=== PATIENT | male | born 1940 | race Caucasian/White ===

== ENCOUNTER 2017-11-08 18:27 | Emergency (ER) | payer OTHER, MEDICARE ==
[~2017-11-08] VITALS: Ht 175.3 cm; Wt 104.5 kg
[~2017-11-08 18:27] MED LIST: ASPIR-LOW81 MG PO; BP med; CIPRO 500MG TA500 MG PO; EPA FISH OIL1 SGL PO; HCTZ 25MG TAB25 MG PO; PRILOSEC 20MG20 MG PO; Triamterene PO; VERAPAMIL240 MG/TAB PO; VICODIN 5/5001 UDTAB PO; ZESTRIL 20MG TA20 MG PO; [UNRECOGNIZED DRUG - OTHER]
[2017-11-08 18:36] VITALS: TEMP 98.8
[2017-11-08 19:02] LABS: COLLECTION METHOD CLEAN CATCH
[2017-11-08 19:06] LABS: BASO # 0.1 (0.0-0.2); BASO % 0.6 % (0.0-2.0); EOS # 0.5 (0.0-0.7); GRAN # 8.9 (1.4-6.5); GRAN % 70.7 % (42.2-75.2); HEMATOCRIT 40.3 % (42.0-52.0); HEMOGLOBIN 13.3 g/dl (13.5-18.0); LYMPH # 1.9 (1.2-3.4); LYMPH % 14.9 % (20.0-51.0); MEAN CELL VOLUME 91 fl (80.0-100.0); MEAN CORPUSCULAR HEMOGLOBIN 30 pg (27.0-31.0); MEAN CORPUSCULAR HGB CONC 33 g/dl (33.0-37.0); MEAN PLATELET VOLUME 10.3 fl (7.4-10.4); MONO # 1.1 (0.1-0.6); MONO % 8.7 % (1.7-9.3); PLATELET COUNT 202 K/mm3 (130-400); RED BLOOD COUNT 4.43 M/mm3 (4.20-5.60); REDCELL DISTRIBUTION WIDTH-CV 14.3 % (11.5-14.5)
[2017-11-08 19:10] LABS: MUCOUS Present /lpf; PH 6 (5-8); SQUAMOUS EPITHELIAL 0-2 /hpf; URINE APPEARANCE Clear; URINE BACTERIA None Seen /hpf; URINE BILIRUBIN Negative (NEGATIVE); URINE BLOOD Negative (NEGATIVE); URINE COLOR Yellow; URINE GLUCOSE Negative (NEGATIVE); URINE KETONE Negative (NEGATIVE); URINE LEUKOCYTE ESTERASE Negative (NEGATIVE); URINE NITRATE Negative (NEGATIVE); URINE PROTEIN(semi-quant) 1+ (NEGATIVE); URINE RBC 0-2 /hpf; URINE UROBILINOGEN Negative (NEGATIVE)
[2017-11-08 19:17] LABS: ALBUMIN 4.1 gm/dL (3.5-5.0); BILIRUBIN,TOTAL 0.3 mg/dL (0.0-1.0); CALCIUM 9.3 mg/dL (8.4-10.2); CREATININE, serum 0.81 mg/dL (0.66-1.25); POTASSIUM 3.9 mmol/L (3.4-5.0); TOTAL PROTEIN 7.3 gm/dL (6.4-8.2)
[2017-11-08] MEDS ORDERED: PROBIOTIC-SUNMARK PO (20:14)
[2017-11-08 20:42] VITALS: BP 138/75; PULSE 76
[2017-11-09] MEDS ORDERED: MAXZIDE 50 MG-71 TAB PO (12:08)
== END 2017-11-08 20:44 | disposition home or self-care (01) ==
LOC: COL.ER 18:27
PROVIDERS: Family Medicine
DX: S63.271A Dislocation of unspecified interphalangeal joint of left index finger, initial encounter (principal); S82.001A Unspecified fracture of right patella, initial encounter for closed fracture; S16.1XXA Strain of muscle, fascia and tendon at neck level, initial encounter; R33.9 Retention of urine, unspecified; I10 Essential (primary) hypertension; K21.9 Gastro-esophageal reflux disease without esophagitis; V49.69XA Unspecified car occupant injured in collision with other motor vehicles in traffic accident, initial encounter
CPT/HCPCS: J2405; J3010; L1846

== ENCOUNTER → 2018-06-22 | Outpatient (CLI) | payer MEDICARE, OTHER ==
[~2018-06-22] MED LIST changes: +MAXZIDE 50 MG-71 TAB PO; +PROBIOTIC-SUNMARK PO
== END ==
LOC: MC.RAD 09:52
DX: N64.59 Other signs and symptoms in breast (principal); N64.4 Mastodynia; N62 Hypertrophy of breast

== ENCOUNTER → 2018-08-09 | Outpatient (CLI) | payer MEDICARE, OTHER | LOC: COL.RAD 14:03 | DX: N40.0 Benign prostatic hyperplasia without lower urinary tract symptoms (principal); Z87.19 Personal history of other diseases of the digestive system; Z90.49 Acquired absence of other specified parts of digestive tract | CPT/HCPCS: Q9967 ==

== ENCOUNTER → 2018-09-12 | Outpatient (CLI) | payer MEDICARE, OTHER | LOC: COL.RAD 07:17 | DX: J92.0 Pleural plaque with presence of asbestos (principal); I27.20 Pulmonary hypertension, unspecified; Z90.49 Acquired absence of other specified parts of digestive tract ==

== ENCOUNTER → 2020-02-29 | Outpatient (CLI) | payer MEDICARE, OTHER ==
[~2020-02-29] VITALS: Ht 182.9 cm; Wt 106.0 kg
[2020-02-29 13:42] VITALS: BP 163/84; PULSE 68
[2020-02-29 15:00] VITALS: BP 149/69; PULSE 63
--- NOTE | 2020-02-29 15:57 | NUR ---
pt states that he feels better but still no great
--- NOTE | 2020-02-29 16:25 | NUR ---
pt is able to stand and the numbness and tingling are no better or worse than when he came in. he stands well and is able to transfer to chair steadily. taken to [facility] and left with his .
== END ==
LOC: COL.RAD 12:57
DX: M54.16 Radiculopathy, lumbar region (principal)
CPT/HCPCS: J3301

== ENCOUNTER → 2020-03-31 | Outpatient (CLI) | payer MEDICARE, OTHER ==
[~2020-03-31] VITALS: Ht 180.3 cm; Wt 107.3 kg
[~2020-03-31] MED LIST changes: +FISH OIL 1000MG1 CAP PO; +METAMUCIL MUL0.52 GM PO; +VITAMIN D31000 I1 PO
[2020-03-31 08:58] VITALS: BP 191/92; PULSE 77
[2020-03-31 09:48] VITALS: BP 168/82; PULSE 73
== END ==
LOC: COL.RAD 08:34
DX: M54.16 Radiculopathy, lumbar region (principal)
CPT/HCPCS: J3301

== ENCOUNTER → 2020-06-24 | Outpatient (CLI) | payer MEDICARE, OTHER ==
[~2020-06-24] VITALS: Ht 180.3 cm; Wt 106.0 kg
[~2020-06-24] MED LIST changes: +TYLENOL 8 HR PO; +ZESTRIL40 MG PO
[2020-06-24 07:01] VITALS: BP 159/77; PULSE 87
--- NOTE | 2020-06-24 08:08 | NUR ---
BCK WITH CT
[2020-06-24 08:40] VITALS: BP 135/72; PULSE 67
== END ==
LOC: COL.RAD 06:52
DX: M48.062 Spinal stenosis, lumbar region with neurogenic claudication (principal); M47.26 Other spondylosis with radiculopathy, lumbar region
CPT/HCPCS: J3301

== ENCOUNTER 2020-09-23 08:16 | Emergency (ER) | payer MEDICARE, OTHER ==
[~2020-09-23] VITALS: Ht 182.9 cm; Wt 109.1 kg
[~2020-09-23 08:16] MED LIST changes: -TYLENOL 8 HR PO; -ZESTRIL40 MG PO
[2020-09-23 10:29] VITALS: BP 134/66; PULSE 68
== END 2020-09-23 10:33 | disposition home or self-care (01) ==
LOC: COL.ER 08:16
DX: R33.9 Retention of urine, unspecified (principal)

== ENCOUNTER 2020-09-23 15:49 | Observation (INO) | payer MEDICARE, OTHER ==
[~2020-09-23] VITALS: Ht 182.9 cm; Wt 106.8 kg
[2020-09-23 18:54] LABS: HEMOGLOBIN 11.2 g/dl (13.5-18.0); MEAN CELL VOLUME 89 fl (80.0-100.0); MEAN CORPUSCULAR HEMOGLOBIN 29 pg (27.0-31.0); MEAN CORPUSCULAR HGB CONC 32 g/dl (33.0-37.0); MEAN PLATELET VOLUME 10.2 fl (7.4-10.4); PLATELET COUNT 236 K/mm3 (130-400); RED BLOOD COUNT 3.91 M/mm3 (4.20-5.60); REDCELL DISTRIBUTION WIDTH-CV 14.6 % (11.5-14.5)
[2020-09-23 18:55] LABS: HEMATOCRIT 34.8 % (42.0-52.0)
[2020-09-23 19:01] LABS: ALBUMIN 3.5 gm/dL (3.5-5.0); BILIRUBIN,TOTAL 0.5 mg/dL (0.0-1.0); CALCIUM 9.8 mg/dL (8.4-10.2); CREATININE, serum 1.53 (0.66-1.25); POTASSIUM 4.5 mmol/L (3.4-5.0); TOTAL PROTEIN 6.8 gm/dL (6.4-8.2)
[2020-09-23 19:30] LABS: BAND 9 % (0-10); LYMPHOCYTE 10 % (20.0-51.0); NEUTROPHILS 78 % (42.0-75.2); PLATELET ESTIMATE NORMAL (NORMAL)
[2020-09-23 22:11] VITALS: BP 150/59; PULSE 90; TEMP 99
[2020-09-24] VITALS (10 sets, daily range): BP systolic 125–160; BP diastolic 53–68; PULSE 76–92; TEMP 97.9–99
--- NOTE | 2020-09-24 04:28 | NUR ---
PATIENT ARRIVED TO UNITS FROM ER. ALERT AND ORIENTED X4. AMBULATED TO BEDROOM WITH 1 ASSIST. PATIENT PRESENT WITH HEMATURIA. HAD TRAMATIC FOELY INSERTION. [address] MEANS CBI WAS INSERTED. ON THE FLOOR CBI WAS CLOGE IRRIGATION DONE WITH NO EFFECT. PATIENT CRYING WITH PAIN AND DISCOMFORT. DR MONTANO CONTACT. NEW ORDER FOR PERCOCET 1 TAB, 5 MG OF VALIUM, LEVSIN 0.125MG AND IVF STARTED WITH NO EFFECT. DR MONTANO MADE AWARE, GIVE ORDER TO DISCONTINUE CBI AND PULL OUT MEANS. WILL CONTINUE TO MONITOR.
--- NOTE | 2020-09-24 07:17 | NUR ---
PATIENT DUE TO VOID AROUND 6AM. PATIENT MADE SEREVAL ATTENTED WITHOUT EFFECT. BLADDER SCAN SHOW 927ML. DR MONTANO MADE AWARE, ORDER TO STRAITH CATH WITH 14 FR CATHER. MADE SEVERAL ATTEMPT WITHOUT SUCESS. DR MONTANO IN TO SEE PATIENT. TRIED TO PLACE A COUDE WITH NO RESULT. PLAN TO TAKE PATIENT DOWN TO OR. PATIENT BEEN NPO.
--- NOTE | 2020-09-24 09:30 | NUR ---
Patient alert and oriented, answers questions appropriately. See assessment. Abdomen distended, bowel sounds active x4 quads. +Flatus. Continues unable to void, bladder scan shows greater than 999ml in bladder, Dr Garrett aware, awaiting surgery time. Patient to bathroom with unsuccessful attempts to void. C/o pain from inability to void. No other c/o at this time.
--- NOTE | 2020-09-24 10:10 | NUR ---
To surgery with surgical staff at this time.
--- NOTE | 2020-09-24 11:00 | NUR ---
The patient is out of the room for a procedure. Formula Clerk attempted to contact the patient's Abigail to complete intake, left message on two different numbers.
--- NOTE | 2020-09-24 12:02 | NUR ---
Patient returns from surgery at 1155.
--- NOTE | 2020-09-24 14:31 | NUR ---
Sand Hauler met with the patient, the patient's , Abigail and [id number] Mony to complete intake. The patient lives in [place] with Abigail. The patient has a walker and CPAP. He receives CPAP supplies from [facility] in [place]. The patient's PCP is Dr. Fleming and patient receives medications from [facility]. The patient does not have advanced directives in the EMR but states they are complete. The patient plans to return home with Abigail at discharge. *Discharge disposition: Home with spouse, Abigail*
--- NOTE | 2020-09-24 17:28 | NUR ---
Discharge instructions reviewed with patient and spouse, basilio care reviewed. Discharged via wheelchair to auto/home with spouse at 1725.
== END 2020-09-24 17:20 | disposition home or self-care (01) ==
LOC: COL.ER 15:49 → SURG 17:58
PROVIDERS: Nurse Practitioner; ADMIT Urology
DX: R33.8 Other retention of urine (principal); R31.0 Gross hematuria; N40.1 Benign prostatic hyperplasia with lower urinary tract symptoms; D72.829 Elevated white blood cell count, unspecified; I10 Essential (primary) hypertension; K21.9 Gastro-esophageal reflux disease without esophagitis; N28.9 Disorder of kidney and ureter, unspecified; Z87.891 Personal history of nicotine dependence; Z79.899 Other long term (current) drug therapy; Z85.21 Personal history of malignant neoplasm of larynx
CPT/HCPCS: C1769; G0378; J0690; J1170; J2405; J2704; J3010; J7030

== ENCOUNTER 2020-10-17 05:11 | Day surgery (SDC) | payer MEDICARE, OTHER ==
[2020-10-17] VITALS (10 sets, daily range): BP systolic 136–171; BP diastolic 46–84; PULSE 69–96; TEMP 97.3–98.7
[~2020-10-17] VITALS: Ht 182.9 cm; Wt 104.2 kg
[2020-10-17] MEDS ORDERED: ZESTRIL40 MG PO (06:10)
[2020-10-17] MEDS ORDERED: TYLENOL 8 HR PO (06:14)
--- NOTE | 2020-10-17 10:57 | NUR ---
Pt recently arrived back to the floor from [facility]. CBI running wide open, output when arriving to the floor was pink to watermelon in color. Output now is dark red with some clots. CBI continues to run wide open. Stayed with pt to ensure output was continueing to flow without problems. PT is tolerating clear liquids. Continues to have no feeling in his legs. present in the room
--- NOTE | 2020-10-17 13:57 | NUR ---
CBI continues to run wide open with bloody output. Some clots in the tubing, unsure if they are new or not. Pt having some back pain, Tylenol given. Tolerating general diet
--- NOTE | 2020-10-17 15:00 | NUR ---
Was able to slow down CBI at this time to moderate rate. Output is currently free of clots and is pink in color. Pt continues to have complaints of pain to his back/neck. Heating pad applied. remains present in the room. No other needs verbalized, will continue to monitor
--- NOTE | 2020-10-17 22:22 | NUR ---
PT IN BED, REPORTS CHRONIC BACK PAIN, MEDICATED WITH TYLENOL 650MG PO AT THIS TIME, WELL HS MEDS. CBI AT MODERATE RATE, URINE PINK. HAS KPAD TO BACK FOR COMFORT. SL TO LEFT FOREARM, FLUSHES WELL.
--- NOTE | 2020-10-18 02:40 | NUR ---
PT COMPLAINS OF LEFT ABD PAIN, MEDICATED WITH TYLENOL 650MG PO AT THIS TIME. CBI AT MODERATE, URINE PINK. WILL MONITOR FOR CHANGES.
[2020-10-18 03:39] VITALS: BP 121/45; PULSE 87; TEMP 98.6
[2020-10-18 07:34] VITALS: BP 162/63; PULSE 88; TEMP 97.7
[2020-10-18 11:22] VITALS: BP 119/51; PULSE 59; TEMP 97.8
--- NOTE | 2020-10-18 12:31 | NUR ---
Stenotypist stopped and offered prayer and support with family in room.
--- NOTE | 2020-10-18 16:07 | NUR ---
Plans to return home in [facility] with Abigail as care support . Patient eports that his PCP is Dr. Clarke Fleming, Dr. Barnes, Dr. Haq in [place]. Patient shares that he has a walker but uses PRN. Obtain medications from [facility]. Patient denies having concerns about care. Patient shares that he has food transportation and has not other identified concerns at this time. Educated on supports. NF.
[2020-10-18 16:17] VITALS: BP 136/59; PULSE 78; TEMP 98.2
[2020-10-18 19:43] VITALS: BP 119/42; PULSE 75; TEMP 98.7
--- NOTE | 2020-10-18 21:50 | NUR ---
PT AMBULATES WITH ASSIST IN HALLWAY. MEANS WITH CBI INFUSING, URINE WITH GROSS HEMATURIA WITH ACTIVITY, CLEARS WITH REST. TAKES HS MEDS INCLUDING TYLENOL 650MG PO FOR CHRONIC BACK PAIN.
[2020-10-18 23:19] VITALS: BP 139/56; PULSE 83; TEMP 98.4
[2020-10-19 03:08] VITALS: BP 151/58; PULSE 74; TEMP 97.3
--- NOTE | 2020-10-19 04:00 | NUR ---
PT ASSISTED WITH AMBULATION IN HALLWAY. SL TO LEFT FOREARM FLUSHES WELL. WILL DC MIGUELANGEL IN AM.
--- NOTE | 2020-10-19 06:30 | NUR ---
DC'D MEANS CATHETER AFTER PRIMING WITH 200CC NS AND DEFLATING BALLOON. PT IMMEDIATELY VOIDED AFTER CATHETER REMOVED. INSTRUCTED ON 6 BOTTLE ROUTINE.
[2020-10-19 07:14] VITALS: BP 161/63; PULSE 80; TEMP 98
--- NOTE | 2020-10-19 08:58 | NUR ---
PT UP INDEPENDENTLY IN ROOM AND HALLS. AT [facility] ASSISTING PT WITH SHOWER. AFTER SIX BOTTLE ROUTINE PT ABLE TO DISCHARGE HOME.
--- NOTE | 2020-10-19 11:10 | NUR ---
DISCHARGE REVIEWED WITH PT AND . QUESTIONS SOLICITED AND ANSWERED. PT LEFT PER WHEEL CHAIR WITH STAFF. INT DISCONTINUED.
== END 2020-10-19 10:55 | disposition home or self-care (01) ==
LOC: SDCO 05:11 → SURG 09:45 → SDCO 10-19 10:55
DX: N40.1 Benign prostatic hyperplasia with lower urinary tract symptoms (principal); R33.8 Other retention of urine; R39.12 Poor urinary stream; K21.9 Gastro-esophageal reflux disease without esophagitis; I10 Essential (primary) hypertension; I83.90 Asymptomatic varicose veins of unspecified lower extremity; I34.2 Nonrheumatic mitral (valve) stenosis; E66.9 Obesity, unspecified; J44.9 Chronic obstructive pulmonary disease, unspecified; D64.9 Anemia, unspecified; G47.00 Insomnia, unspecified; Z85.21 Personal history of malignant neoplasm of larynx; Z79.899 Other long term (current) drug therapy; Z87.891 Personal history of nicotine dependence
CPT/HCPCS: OP; J0690; J2250; J2704; J3480; J7120

== ENCOUNTER 2021-04-09 12:45 | Outpatient (RCR) | payer MEDICARE, OTHER ==
[~2021-04-09 12:45] MED LIST changes: +TYLENOL 8 HR PO; +ZESTRIL40 MG PO
== END 2021-04-10 | disposition home or self-care (01) ==
LOC: WSPT
DX: Z98.1 Arthrodesis status (principal)

== ENCOUNTER 2021-10-04 17:44 | Emergency (ER) | payer MEDICARE, OTHER ==
[~2021-10-04] VITALS: Ht 180.3 cm; Wt 104.5 kg
[2021-10-04 17:52] VITALS: TEMP 98.5
[2021-10-04 18:13] LABS: HEMOGLOBIN 11.4 g/dl (13.5-18.0); MEAN CELL VOLUME 91 fl (80.0-100.0); MEAN CORPUSCULAR HEMOGLOBIN 30 pg (27-31); MEAN CORPUSCULAR HGB CONC 32 g/dl (33.0-37.0); MEAN PLATELET VOLUME 10.1 fl (7.4-10.4); PLATELET COUNT 326 K/mm3 (130-400); RED BLOOD COUNT 3.87 M/mm3 (4.20-5.60); REDCELL DISTRIBUTION WIDTH-CV 14.7 % (11.5-14.5)
[2021-10-04 18:14] LABS: HEMATOCRIT 35.2 % (42.0-52.0)
[2021-10-04 18:23] LABS: ALBUMIN 3.5 gm/dL (3.4-4.8); BILIRUBIN,TOTAL 0.4 mg/dL (0.2-1.2); C-REACTIVE PROTEIN 2.74 mg/dL (0.00-0.50); CALCIUM 10.1 mg/dL (8.4-10.2); CREATININE, serum 1.06 mg/dL (0.72-1.25); POTASSIUM 4.5 mmol/L (3.5-4.5); TOTAL PROTEIN 7.6 gm/dL (6.2-8.1)
[2021-10-04 19:13] LABS: EOSINOPHIL 1 % (0-4); LYMPHOCYTE 13 % (20.0-51.0); NEUTROPHILS 84 % (42.0-75.2); PLATELET ESTIMATE NORMAL (NORMAL)
[2021-10-04 19:28] LABS: COLLECTION METHOD CLEAN CATCH
[2021-10-04 19:35] LABS: MUCOUS Present (NOT PRESENT); PH 7 (5-8); SQUAMOUS EPITHELIAL None Seen /hpf (0-10); URINE APPEARANCE Clear (CLEAR/HAZY); URINE BACTERIA None Seen /hpf (NONE SEEN); URINE BILIRUBIN Negative (NEGATIVE); URINE BLOOD Negative (NEGATIVE); URINE COLOR Yellow (YELLOW); URINE GLUCOSE Negative (NEGATIVE); URINE KETONE Negative (NEGATIVE); URINE LEUKOCYTE ESTERASE Negative (NEGATIVE); URINE NITRATE Negative (NEGATIVE); URINE PROTEIN(semi-quant) Negative (NEGATIVE); URINE RBC 0-2 /hpf (0-2); URINE UROBILINOGEN Negative (NEGATIVE)
[2021-10-04] MEDS ORDERED: NORCO 325 MG-51 TAB PO (22:02)
[2021-10-04] MEDS ORDERED: CIPRO 500MG TA500 MG PO ×3 (22:02→22:14)
[2021-10-04] MEDS ORDERED: FLAGYL500 MG PO ×3 (22:02→22:14)
[2021-10-04] MEDS ORDERED: ZOFRAN ODT4 MG PO (22:02)
[2021-10-04 22:20] VITALS: BP 119/69; PULSE 86
== END 2021-10-04 22:24 | disposition home or self-care (01) ==
LOC: COL.ER 17:44
PROVIDERS: Nurse Practitioner
DX: K57.32 Diverticulitis of large intestine without perforation or abscess without bleeding (principal); Z90.49 Acquired absence of other specified parts of digestive tract; Z88.0 Allergy status to penicillin
CPT/HCPCS: J1170; J2405; J7030; Q9967

== ENCOUNTER 2021-10-06 20:38 | Inpatient (IN) | payer MEDICARE, OTHER ==
[~2021-10-06] VITALS: Ht 182.9 cm; Wt 106.9 kg
[~2021-10-06 20:38] MED LIST changes: +FLAGYL500 MG PO; +NORCO 325 MG-51 TAB PO; +ZOFRAN ODT4 MG PO
[2021-10-06 22:33] LABS: HEMOGLOBIN 10.3 g/dl (13.5-18.0); MEAN CELL VOLUME 91 fl (80.0-100.0); MEAN CORPUSCULAR HEMOGLOBIN 29 pg (27-31); MEAN CORPUSCULAR HGB CONC 32 g/dl (33.0-37.0); MEAN PLATELET VOLUME 9.9 fl (7.4-10.4); PLATELET COUNT 257 K/mm3 (130-400); RED BLOOD COUNT 3.55 M/mm3 (4.20-5.60); REDCELL DISTRIBUTION WIDTH-CV 14.6 % (11.5-14.5)
[2021-10-06 22:35] LABS: HEMATOCRIT 32.4 % (42.0-52.0)
[2021-10-06 22:51] LABS: BAND 1 % (0-10); LYMPHOCYTE 9 % (20.0-51.0); NEUTROPHILS 85 % (42.0-75.2); PLATELET ESTIMATE NORMAL (NORMAL)
[2021-10-06 22:52] LABS: HYPOCHROMIA 2+
[2021-10-06 22:54] LABS: BILIRUBIN,TOTAL 0.5 mg/dL (0.2-1.2); C-REACTIVE PROTEIN 13.49 mg/dL (0.00-0.50); CALCIUM 9.4 mg/dL (8.4-10.2); CREATININE, serum 0.9 mg/dL (0.72-1.25); TOTAL PROTEIN 6.9 gm/dL (6.2-8.1)
[2021-10-07 01:40] VITALS: BP 162/67; PULSE 99; TEMP 98.2
[2021-10-07 04:11] VITALS: BP 141/64; PULSE 88; TEMP 98
--- NOTE | 2021-10-07 04:32 | NUR ---
Pt to the floor at approximately 0120. Assessment and medication administration completed. Pt is A&Ox4 and ambulates independently with cane. Hospitalist in to see the pt. Orders received. PRN pain medication given per EMAR. All other needs met at this time, call light within reach.
[2021-10-07 05:54] LABS: BASO # 0.1 K/mm3 (0.0-0.2); BASO % 0.5 % (0.0-2.0); EOS # 0.4 K/mm3 (0.0-0.7); EOS % 2.6 % (0.0-4.0); GRAN # 12.9 K/mm3 (1.4-6.5); LYMPH # 1.1 K/mm3 (1.2-3.4); LYMPH % 6.6 % (20.0-51.0); MEAN CELL VOLUME 92 fl (80.0-100.0); MEAN CORPUSCULAR HGB CONC 32 g/dl (33.0-37.0); MONO # 1.5 K/mm3 (0.1-0.6); MONO % 9.1 % (1.7-9.3); PLATELET COUNT 244 K/mm3 (130-400); RED BLOOD COUNT 3.18 M/mm3 (4.20-5.60); REDCELL DISTRIBUTION WIDTH-CV 14.5 % (11.5-14.5)
[2021-10-07 05:57] LABS: HEMATOCRIT 29.1 % (42.0-52.0); HEMOGLOBIN 9.2 g/dl (13.5-18.0); MEAN CORPUSCULAR HEMOGLOBIN 29 pg (27-31)
[2021-10-07 06:10] LABS: CALCIUM 8.8 mg/dL (8.4-10.2); CREATININE, serum 0.77 mg/dL (0.72-1.25); POTASSIUM 3.8 mmol/L (3.5-4.5)
[2021-10-07 07:44] VITALS: BP 143/69; PULSE 88; TEMP 98.4
--- NOTE | 2021-10-07 10:36 | NUR ---
Warp Dyeing Tender met with patient to discuss discharge planning. Patient has family at bedside including his , Abigail (ph#[phone]). Patient lives in [place] and sees Dr. Fleming for primary care. Patient obtains medications from either [facility] or [facility] with no difficulties. Patient has a CPAP, cane, and walker at home and is typically independent with ADLS but has required more assistance from his lately as he recently had knee surgery. Patient reports his , Abigail is his DPOA-HC. Patient plans to return home at time of discharge. Discharge Plan: Home
--- NOTE | 2021-10-07 12:35 | NUR ---
PATIENT ALERT AND ORIENTED X3. VSS. PATIENT HERE FOR DIVERTICULITIS. PATIENT COMPLAINS OF PAIN 06/18. ASSESSMENT PERFORMED. IV TO RIGHT FOREARM WITH NS RUNNING AT 75ML/HOUR. AM MEDS ADMINISTERED. CALL LIGHT WITHIN REACH.
[2021-10-07 13:06] VITALS: BP 117/32; PULSE 72; TEMP 98.4
--- NOTE | 2021-10-07 13:45 | NUR ---
Initial visit; Patient and his thanked Water Filter Cleaner for looking in on him and offering Spiritual Care. Patient pleased with prayer and Water Filter Cleaner assured him there is the offer of Spiritual Care and Chaplains here daily.
[2021-10-07 16:08] VITALS: BP 124/53; PULSE 75; TEMP 97.9
[2021-10-07 20:30] VITALS: BP 145/64; PULSE 77; TEMP 97.9
--- NOTE | 2021-10-07 21:56 | NUR ---
Pt resting quietly in his bed during shift report. Pt is A&Ox4 and pleasant. Assessment and medication administration completed without difficulty. Pain medication given per EMAR. All other needs met at this time, call light within reach.
[2021-10-08] VITALS (7 sets, daily range): BP systolic 123–144; BP diastolic 47–64; PULSE 73–89; TEMP 98.1–98.8
--- NOTE | 2021-10-08 07:00 | NUR ---
PT RESTING IN BED TALKING ON THE PHONE. BREAKFAST DONE. PT HAS CALL LIGHT AND PHONE WITH IN REACH, PT DENIES NEEDS.
--- NOTE | 2021-10-08 20:31 | NUR ---
PT JUST RETURNED FROM BR. BACK TO BED. IVF'S DC'D ORDERED. PT DENIES ABD PAIN OR NAUSEA AT THIS TIME. NO NEEDS VERBALIED. CALL LIGHT IN REACH.
--- NOTE | 2021-10-08 21:25 | NUR ---
SEE MAR FOR PAIN MED GIADRIAN FOR S/P LT KNEE PAIN.
[2021-10-09 03:26] VITALS: BP 143/57; PULSE 79; TEMP 98.6
[2021-10-09 06:21] LABS: MEAN CELL VOLUME 92 fl (80.0-100.0); MEAN CORPUSCULAR HGB CONC 31 g/dl (33.0-37.0); MEAN PLATELET VOLUME 10.2 fl (7.4-10.4); PLATELET COUNT 300 K/mm3 (130-400); RED BLOOD COUNT 3.42 M/mm3 (4.20-5.60); REDCELL DISTRIBUTION WIDTH-CV 14.7 % (11.5-14.5)
[2021-10-09 06:43] LABS: HEMATOCRIT 31.5 % (42.0-52.0); HEMOGLOBIN 9.9 g/dl (13.5-18.0); MEAN CORPUSCULAR HEMOGLOBIN 29 pg (27-31)
[2021-10-09 07:04] LABS: BAND 4 % (0-10); BASOPHIL 1 % (0-2); EOSINOPHIL 4 % (0-4); METAMYELOCYTE 2 % (0-0); NEUTROPHILS 69 % (42.0-75.2)
[2021-10-09 07:05] LABS: HYPOCHROMIA 2+; PLATELET ESTIMATE NORMAL (NORMAL)
[2021-10-09 07:10] LABS: LYMPHOCYTE 12 % (20.0-51.0)
[2021-10-09 08:18] VITALS: BP 150/54; PULSE 95; TEMP 98.5
[2021-10-09] MEDS ORDERED: ASPIRIN 32325 MG/TAB PO (09:04)
--- NOTE | 2021-10-09 12:12 | NUR ---
PATIENT GIVEN ALL DISCHARGE INSTRUCTIONS/EDUCATION. IV REMOVED. PATIENT AND HAVE ALL DISHCARGE PACKETS AND BEELONGINGS. PATIENT LEFT IN THE CARE OF HIS IN STABLE CONDITION @ 1827.
== END 2021-10-09 11:34 | disposition home or self-care (01) | DRG 392 ==
LOC: COL.ER 20:38 → SURG 10-07 01:03
PROVIDERS: Internal Medicine; Nurse Practitioner; Student in an Organized Health Care Education/Training Program; ADMIT Internal Medicine
DX: K57.32 Diverticulitis of large intestine without perforation or abscess without bleeding (principal); I10 Essential (primary) hypertension; D64.9 Anemia, unspecified; Z96.652 Presence of left artificial knee joint; D72.829 Elevated white blood cell count, unspecified; Z88.0 Allergy status to penicillin; Z88.2 Allergy status to sulfonamides; Z88.8 Allergy status to other drugs, medicaments and biological substances; Z87.891 Personal history of nicotine dependence; Z23 Encounter for immunization; Z90.49 Acquired absence of other specified parts of digestive tract
CPT/HCPCS: 99223-AI; 99232-AI; J0744; J1170; J2405; J7030; Q9967

== ENCOUNTER 2021-10-14 17:04 | Emergency (ER) | payer MEDICARE, OTHER ==
[~2021-10-14] VITALS: Ht 182.9 cm; Wt 104.5 kg
[~2021-10-14 17:04] MED LIST changes: +ASPIRIN 32325 MG/TAB PO
[2021-10-14 19:09] VITALS: TEMP 98.1
[2021-10-14 19:13] LABS: HEMOGLOBIN 10.7 g/dl (13.5-18.0); MEAN CELL VOLUME 89 fl (80.0-100.0); MEAN CORPUSCULAR HEMOGLOBIN 29 pg (27-31); MEAN CORPUSCULAR HGB CONC 32 g/dl (33.0-37.0); MEAN PLATELET VOLUME 9.7 fl (7.4-10.4); PLATELET COUNT 375 K/mm3 (130-400)
[2021-10-14 19:28] LABS: BAND 6 % (0-10); LYMPHOCYTE 3 % (20.0-51.0); METAMYELOCYTE 1 % (0-0); NEUTROPHILS 80 % (42.0-75.2); PLATELET ESTIMATE NORMAL (NORMAL)
[2021-10-14 19:33] LABS: ALBUMIN 3.3 gm/dL (3.4-4.8); BILIRUBIN,TOTAL 0.4 mg/dL (0.2-1.2); C-REACTIVE PROTEIN 1.33 mg/dL (0.00-0.50); CALCIUM 9.7 mg/dL (8.4-10.2); CREATININE, serum 1.1 mg/dL (0.72-1.25); TOTAL PROTEIN 7.1 gm/dL (6.2-8.1)
[2021-10-14 23:13] LABS: COLLECTION METHOD CLEAN CATCH
[2021-10-14 23:19] LABS: MUCOUS Present (NOT PRESENT); SQUAMOUS EPITHELIAL 0-2 /hpf (0-10); URINE APPEARANCE Clear (CLEAR/HAZY); URINE BACTERIA None Seen /hpf (NONE SEEN); URINE COLOR Yellow (YELLOW)
[2021-10-14 23:20] LABS: PH 7 (5-8); URINE BILIRUBIN Negative (NEGATIVE); URINE BLOOD Negative (NEGATIVE); URINE GLUCOSE Negative (NEGATIVE); URINE KETONE Negative (NEGATIVE); URINE LEUKOCYTE ESTERASE Trace (NEGATIVE); URINE NITRATE Negative (NEGATIVE); URINE PROTEIN(semi-quant) 1+ (NEGATIVE); URINE UROBILINOGEN Negative (NEGATIVE)
[2021-10-15 00:29] VITALS: BP 119/62; PULSE 80
[2021-10-19] MEDS ORDERED: FLAGYL500 MG PO ×3 (01:56→02:16)
[2021-10-19] MEDS ORDERED: LEVAQUIN 750MG750 M1 PO ×3 (01:56→02:16)
== END 2021-10-15 00:29 | disposition home or self-care (01) ==
LOC: COL.ER 17:04
PROVIDERS: Nurse Practitioner
DX: K59.00 Constipation, unspecified (principal); D72.829 Elevated white blood cell count, unspecified; Z88.0 Allergy status to penicillin
CPT/HCPCS: J7030; Q9967

== ENCOUNTER 2021-12-03 14:47 | Inpatient (IN) | payer MEDICARE, OTHER ==
[~2021-12-03] VITALS: Ht 182.9 cm; Wt 97.6 kg
[~2021-12-03 14:47] MED LIST changes: +LEVAQUIN 750MG750 M1 PO
[2021-12-16] VITALS (9 sets, daily range): BP systolic 116–129; BP diastolic 51–63; PULSE 65–74; TEMP 97.3–98.2
[2021-12-16] MEDS ORDERED: STOOL SOFTENER100 M2 PO (09:49)
--- NOTE | 2021-12-16 10:00 | NUR ---
The patient ambulated back to [place] 5 independently using a steady gait and appeared tolerate the activity well. Vital signs obtained. Consent signed. 18G IV started in left hand with one stick, LR Infusing without difficulty. Pre op medications administered including Flagyl. Dr. Hunter and GIA Hernandez were both made aware that the patient was not given the celebrex within the ERAS protocol due to his sulfa allergy. Warm blanket provided. Denies any further needs. brought back to be at his bedside.
--- NOTE | 2021-12-16 10:16 | NUR ---
The patient was taken over to the recovery room to have a block placed pre operatively and his chart was sent with him. The patient's went back out to the waiting room to stay during surgery. The patient's belongings will be taken over to the recovery room and will be transferred with the patient to his room post operatively.
--- NOTE | 2021-12-16 15:45 | NUR ---
Pt. arrived to the floor from PACU. Pt. is A&OX3, assessment complete. Abd. incisions well approximated. Pt. denies pain or other needs, call light within reach.
--- NOTE | 2021-12-17 01:55 | NUR ---
PATIENT ALERT AND ORIENTED X4, WITH 6 LAP SITES EDGES WELL APPROXIMATED, WITH HEARING AID ON THE LEFT, INT TO LFA, ON ROOM AIR, C/O OF MILD PAIN BUT DENIES NEED FOR PAIN MEDS, WALKED DOWN TO HALLWAY LAST 2099, ANTIBIOTIC GIVEN, SCDS ON, WILL CONTINUE TO MONITOR.
[2021-12-17 04:01] VITALS: BP 153/51; PULSE 84; TEMP 97.6
--- NOTE | 2021-12-17 05:23 | NUR ---
Patient ambulated down the hallway this morning and did good, still with basilio catheter draining clear yellow urine.
[2021-12-17 05:35] LABS: BASO % 0.2 % (0.0-2.0); EOS % 0.1 % (0.0-4.0); GRAN # 13.2 K/mm3 (1.4-6.5); LYMPH # 0.9 K/mm3 (1.2-3.4); LYMPH % 6.3 % (20.0-51.0); MEAN CELL VOLUME 87 fl (80.0-100.0); MEAN CORPUSCULAR HEMOGLOBIN 28 pg (27-31); MEAN CORPUSCULAR HGB CONC 32 g/dl (33.0-37.0); MEAN PLATELET VOLUME 10.1 fl (7.4-10.4); MONO # 0.8 K/mm3 (0.1-0.6); MONO % 5.1 % (1.7-9.3); PLATELET COUNT 237 K/mm3 (130-400); RED BLOOD COUNT 3.92 M/mm3 (4.20-5.60); REDCELL DISTRIBUTION WIDTH-CV 15.6 % (11.5-14.5)
[2021-12-17 05:40] LABS: HEMATOCRIT 34.2 % (42.0-52.0)
[2021-12-17 05:55] LABS: ALBUMIN 3.4 gm/dL (3.4-4.8); BILIRUBIN,TOTAL 0.3 mg/dL (0.2-1.2); CALCIUM 9.9 mg/dL (8.4-10.2); CREATININE, serum 1.14 mg/dL (0.72-1.25); POTASSIUM 4.6 mmol/L (3.5-4.5); TOTAL PROTEIN 6.5 gm/dL (6.2-8.1)
[2021-12-17 07:26] VITALS: BP 137/56; PULSE 83; TEMP 98
--- NOTE | 2021-12-17 09:15 | NUR ---
Pt. sitting up in bed with at bedside. Pt. is A&OX3, assessment complete. INT to lt. forearm patent. Abd. incisions well approximated. Basilio catheter to DD, yellow urine noted. Discontinueing basilio at this time. Pt. tolerated well. Pt. denies pain or other needs, call light within reach.
--- NOTE | 2021-12-17 11:07 | NUR ---
Initial visit; Patient thanked Tombstone Erector Helper for looking in on him and offering God's blessings.
--- NOTE | 2021-12-17 11:08 | NUR ---
production worker met with patient to complete intake and discuss discharge plan. Patient reports that he lives at home with his Abigail ([phone]) in [place]. He is independent with his ADL's and is no longer utilizing a walker/cane to assist with ambulation. Reports he was using these after a TKA. He has no day time oxygen needs but does use a CPAP every night that is managed through [facility] in [place]. PCP is Dr. Fleming and he utilizes [facility] pharmacy for prescriptions. Patient reports that he does have a DPOA-HC established listing his but a copy is not found in his EMR. Patient is planning on returning home once medically ready with no concerns. Discharge plan: Home
[2021-12-17 11:50] VITALS: BP 131/50; PULSE 84; TEMP 97.5
[2021-12-17 15:56] VITALS: BP 130/53; PULSE 74; TEMP 98.1
[2021-12-17 19:49] VITALS: BP 140/55; PULSE 83; TEMP 97.9
[2021-12-17 23:17] VITALS: BP 141/56; PULSE 71; TEMP 98
[2021-12-18 04:02] VITALS: BP 142/76; PULSE 83; TEMP 98.4
[2021-12-18 08:30] VITALS: BP 136/47; PULSE 88; TEMP 97.6
--- NOTE | 2021-12-18 10:07 | NUR ---
Patient sitting up at edge of bed. at bedside. Minimal complaints of pain. He denies nausea, but disappointed in the food. Abdomen soft, passing flatus. Denies yet having BM. incisions edges well approximated. open to air. Will monitor.
[2021-12-18] MEDS ORDERED: TYLENOL 500MG500 MG PO (11:28)
[2021-12-18] MEDS ORDERED: ROXICODONE 55 MG/TAB PO ×2 (11:29)
--- NOTE | 2021-12-18 12:42 | NUR ---
rounded, plan of care reviewed. Patient tolerated lunch, continues to deny passing Bm. Denies needs at this time
[2021-12-18 12:54] VITALS: BP 128/47; PULSE 67; TEMP 97.9
[2021-12-18 16:42] VITALS: BP 130/52; PULSE 71; TEMP 98
--- NOTE | 2021-12-18 16:59 | NUR ---
Patient resting in bed. at bedside. Denies needs. Not wanting scheduled tylenol at this time
[2021-12-18 19:28] VITALS: BP 149/66; PULSE 80; TEMP 98.3
--- NOTE | 2021-12-18 19:30 | NUR ---
BEDSIDE REPORT TO JOSUE, PATIENT DENIES NEEDS.
[2021-12-18 23:36] VITALS: BP 154/57; PULSE 73; TEMP 97.7
--- NOTE | 2021-12-19 02:17 | NUR ---
PATIENT ALERT AND ORIENTED. IN BED ON ROOM ENTRY. C/O MOD PAIN 5/10 TO ABD AND R ARM. SCHEDULED MOTRIN GIVEN AND PATIENT DENIES ADDITIONAL NEEDS AT THIS TIME. DENIES SOB. STATES HE IS READY TO LEAVE.
--- NOTE | 2021-12-19 02:19 | NUR ---
PATIENT IN BED ON ROOM ENTRY. ALERT AND ORIENTED. HS MEDS PER EMAR. X6 ABD LAPS CDI WITH GLUE AND LOW TRANSVERSE CDI WITH GLUE. PATIENT HAD SEVERAL SMALL BROWN STOOLS DURING THE NIGHT.
[2021-12-19 03:09] VITALS: BP 151/73; PULSE 97; TEMP 97.4
[2021-12-19 07:29] VITALS: BP 142/88; PULSE 87; TEMP 98.5
--- NOTE | 2021-12-19 08:34 | NUR ---
Pt assessment complete. Pt is sitting up in bed upon entry, he is A/O x4. His breathing is even and unlabored on RA. Pt denies SOB. No pain at this time, just soreness. Denies any N/V. Reports having a BM overnight. Pt encouraged to continue ambulating in halls, no needs at this time. Pt up to walk.
[2021-12-19 12:00] VITALS: BP 156/61; PULSE 42; TEMP 97.7
--- NOTE | 2021-12-19 13:07 | NUR ---
Inspector Assembly rounds: Inspector Assembly visit attempted. Patient declined because he was watching the [employer] game.
--- NOTE | 2021-12-19 13:16 | NUR ---
Discharge instructions and paperwork reviewed with patient. All questions answered at this time. IV to Lhand dc'd catheter tip intact. Pt wheeled out of facility by staff member at this time.
== END 2021-12-19 13:17 | disposition home or self-care (01) | DRG 331 ==
LOC: INPTSU 12-16 09:01 → SURG 12-16 09:01
PROVIDERS: ADMIT Surgery
PROC: 8E0W4CZ Robotic Assisted Procedure of Trunk Region, Percutaneous Endoscopic Approach (ICD-10-PCS; 2021-12-16)
PROC: 0DTN4ZZ Resection of Sigmoid Colon, Percutaneous Endoscopic Approach (ICD-10-PCS; principal; 2021-12-16 11:00)
DX: K57.32 Diverticulitis of large intestine without perforation or abscess without bleeding (principal); Z96.652 Presence of left artificial knee joint; K59.00 Constipation, unspecified; T40.605A Adverse effect of unspecified narcotics, initial encounter; I27.20 Pulmonary hypertension, unspecified; G47.10 Hypersomnia, unspecified; G47.30 Sleep apnea, unspecified; I12.9 Hypertensive chronic kidney disease with stage 1 through stage 4 chronic kidney disease, or unspecified chronic kidney disease; N18.9 Chronic kidney disease, unspecified; J44.9 Chronic obstructive pulmonary disease, unspecified; K21.9 Gastro-esophageal reflux disease without esophagitis; G62.9 Polyneuropathy, unspecified; D72.829 Elevated white blood cell count, unspecified; N40.0 Benign prostatic hyperplasia without lower urinary tract symptoms; Y92.89 Other specified places as the place of occurrence of the external cause; Z88.0 Allergy status to penicillin; Z88.2 Allergy status to sulfonamides; Z88.8 Allergy status to other drugs, medicaments and biological substances
CPT/HCPCS: A4314; A9284; J0690; J1100; J1200; J1650; J2250; J2370; J2405; J2704; J2710; J2795; J3010; J7120

== ENCOUNTER 2022-04-30 02:57 | Inpatient (IN) | payer MEDICARE, OTHER ==
[2022-04-30] VITALS (12 sets, daily range): BP systolic 138–167; BP diastolic 70–86; PULSE 68–76; TEMP 97.3–98.6
[~2022-04-30] VITALS: Ht 182.9 cm; Wt 104.5 kg
[~2022-04-30 02:57] MED LIST changes: +ROXICODONE 55 MG/TAB PO; +STOOL SOFTENER100 M2 PO; +TYLENOL 500MG500 MG PO
[2022-04-30 03:16] LABS: BASO # 0.1 K/mm3 (0.0-0.2); BASO % 0.8 % (0.0-2.0); EOS # 0.6 K/mm3 (0.0-0.7); EOS % 6.4 % (0.0-4.0); GRAN # 6.1 K/mm3 (1.4-6.5); GRAN % 64.2 % (42.2-75.2); HEMATOCRIT 42.3 % (42.0-52.0); HEMOGLOBIN 13.7 g/dl (13.5-18.0); LYMPH # 1.8 K/mm3 (1.2-3.4); LYMPH % 18.4 % (20.0-51.0); MEAN CELL VOLUME 92 fl (80.0-100.0); MEAN CORPUSCULAR HEMOGLOBIN 30 pg (27-31); MEAN CORPUSCULAR HGB CONC 32 g/dl (33.0-37.0); MEAN PLATELET VOLUME 10.6 fl (7.4-10.4); MONO # 0.9 K/mm3 (0.1-0.6); MONO % 9.1 % (1.7-9.3); PLATELET COUNT 211 K/mm3 (130-400); RED BLOOD COUNT 4.62 M/mm3 (4.20-5.60); REDCELL DISTRIBUTION WIDTH-CV 15.1 % (11.5-14.5)
[2022-04-30 03:29] LABS: PROTHROMBIN TIME 11.6 SECONDS (9.7-12.8)
[2022-04-30 03:51] LABS: ALANINE AMINOTRANSFERASE 18 U/L (0-55); ALBUMIN 3.8 gm/dL (3.4-4.8); ALKALINE PHOSPHATASE 63 U/L (40-150); ANION GAP 12 mmol/L (7-16); AST,SGOT 18 U/L (5-34); BILIRUBIN,TOTAL 0.4 mg/dL (0.2-1.2); BLOOD UREA NITROGEN 24 mg/dL (8-26); CALCIUM 9.9 mg/dL (8.4-10.2); CARBON DIOXIDE 18 mmol/L (23-31); CHLORIDE 107 mmol/L (98-107); CREATINE KINASE 363 U/L (30-200); CREATININE, serum 0.98 mg/dL (0.72-1.25); GLUCOSE 107 mg/dL (70-99); POTASSIUM 4.6 mmol/L (3.5-4.5); SODIUM 137 mmol/L (136-145); TOTAL PROTEIN 7.4 gm/dL (6.2-8.1)
[2022-04-30 04:00] LABS: TROPONIN-I < 0.010 ng/mL (0.00-0.033)
--- NOTE | 2022-04-30 05:47 | NUR ---
Patient arrived to surgical unit from ER at approximately 0515. Alert and oriented. Complained of level 6 pain to left shoulder/back. Given PRN Morphine for pain. Peripheral IV to right AC, started IV fluids per orders. Telemetry in place, sinus rhythm. Denies SOB and dyspnea. LS CTA. On room air. BSAx4. No edema. Patient updated on plan for echo and lexiscan today, and that he is NPO. Voices understanding. Denies having any questions, needs, or concerns at this time. In bed with call light within reach.
[2022-04-30] MEDS ORDERED: MAXZIDE-25MG TA1 TAB PO (07:03)
--- NOTE | 2022-04-30 09:48 | NUR ---
ELEVATED TROPONIN OF 0.079 CALLED TO Susy AUGUST WITH HOSPITALIST., WILL RECHECK LEVEL AT NOON
--- NOTE | 2022-04-30 11:47 | NUR ---
PT TAKEN TO GIS ANALYST VIA STRETCHER, FAMILY AT SIDE.
--- NOTE | 2022-04-30 12:08 | NUR ---
See merge for all medication, assessment, intervention, and vital sign times.
--- NOTE | 2022-04-30 15:28 | NUR ---
3ML OF AIR REMOVED FROM TR BAND, NO BLEEDING NOTED AND SKIN SURROUNDING AREA IS SOFT.
--- NOTE | 2022-04-30 15:31 | NUR ---
Cost Engineer met with patient to discuss discharge planning. Patient's , Abigail (ph#[phone]) is at bedside. Patient [place], [place] and sees Dr. Fleming for primary care. Patient obtains medications from [facility] with no difficulties. Patient uses a CPAP and no other DME. Patient is normally independent with ADLS but does report occasional difficulties with getting dressed as he has gotten older. Patient advised his , Abigail is DPOA-HC. Discharge Plan: Home
--- NOTE | 2022-04-30 16:46 | NUR ---
3 ML HAS BEEN REMOVED AND PUT BACK AT 320PM. 30 MIN LATER. I REMOVED 3ML AND NOTICES BLOOD. PUT BACK THE3ML AND SPOKE WITH CHARGE NURSE. SHE SAID ITS GOOD TO GO AND TRY AGAIN IN 30 MIN. PATIENT STILL HAVE 11ML
--- NOTE | 2022-04-30 17:52 | NUR ---
WRIST BRACE TAKEN OFF. PATIENT ABLE TO GO HOME WITH THE HELP OF AYLIN KENT. BLEEDING STOP. IV SITE TAKEN OFF. DISCHARGE INSTRUCTION WAS GIVEN ORDER. WENT OVER DIET AND ACTIVITY.
--- NOTE | 2022-04-30 18:13 | NUR ---
pATIENT LEFT AT 550PM
== END 2022-04-30 17:50 | disposition home or self-care (01) | DRG 281 ==
LOC: COL.ER 02:57 → SURG 04:55
PROVIDERS: Emergency Medicine; Nurse Practitioner Family; ADMIT Student in an Organized Health Care Education/Training Program
PROC: 4A023N7 Measurement of Cardiac Sampling and Pressure, Left Heart, Percutaneous Approach (ICD-10-PCS; principal; 2022-04-30)
PROC: B2111ZZ Fluoroscopy of Multiple Coronary Arteries using Low Osmolar Contrast (ICD-10-PCS; 2022-04-30)
DX: R07.89 Other chest pain (principal); I21.4 Non-ST elevation (NSTEMI) myocardial infarction; E87.20 Acidosis, unspecified; I16.0 Hypertensive urgency; I10 Essential (primary) hypertension; K21.9 Gastro-esophageal reflux disease without esophagitis; K44.9 Diaphragmatic hernia without obstruction or gangrene; N40.0 Benign prostatic hyperplasia without lower urinary tract symptoms; D64.9 Anemia, unspecified; I08.1 Rheumatic disorders of both mitral and tricuspid valves; Z96.651 Presence of right artificial knee joint; E87.5 Hyperkalemia; Z87.19 Personal history of other diseases of the digestive system; Z88.0 Allergy status to penicillin; Z88.2 Allergy status to sulfonamides; Z88.8 Allergy status to other drugs, medicaments and biological substances; Z85.21 Personal history of malignant neoplasm of larynx; Z90.49 Acquired absence of other specified parts of digestive tract; Z87.891 Personal history of nicotine dependence; Z23 Encounter for immunization
CPT/HCPCS: OP; J1644; J1650; J2250; J2270; J3010; J7030; Q9967

== ENCOUNTER 2024-01-12 13:09 | Inpatient (IN) | payer MEDICARE, OTHER ==
[~2024-01-12] VITALS: Ht 177.8 cm; Wt 107.3 kg
[~2024-01-12 13:09] MED LIST changes: +MAXZIDE-25MG TA1 TAB PO
[2024-01-12 14:20] LABS: BASO # 0.1 K/mm3 (0.0-0.2); BASO % 0.7 % (0.0-2.0); EOS # 0.5 K/mm3 (0.0-0.7); EOS % 5.5 % (0.0-4.0); GRAN # 6.4 K/mm3 (1.4-6.5); HEMATOCRIT 37.8 % (42.0-52.0); HEMOGLOBIN 11.9 g/dl (13.5-18.0); LYMPH # 1.8 K/mm3 (1.2-3.4); LYMPH % 18.1 % (20.0-51.0); MEAN CELL VOLUME 95 fl (80.0-100.0); MEAN CORPUSCULAR HEMOGLOBIN 30 pg (27-31); MEAN CORPUSCULAR HGB CONC 32 g/dl (33.0-37.0); MEAN PLATELET VOLUME 10.5 fl (7.4-10.4); MONO % 9.8 % (1.7-9.3); PLATELET COUNT 206 K/mm3 (130-400); RED BLOOD COUNT 3.99 M/mm3 (4.20-5.60); REDCELL DISTRIBUTION WIDTH-CV 15.5 % (11.5-14.5)
[2024-01-12 14:39] LABS: ALBUMIN 3.8 g/dL (3.4-4.8); BILIRUBIN,TOTAL 0.3 mg/dL (0.2-1.2); C-REACTIVE PROTEIN 0.93 mg/dL (0.00-0.50); CALCIUM 9.9 mg/dL (8.4-10.2); CREATININE, serum 1.22 mg/dL (0.72-1.25); POTASSIUM 5.3 mEq/L (3.5-4.5); TOTAL PROTEIN 7.3 g/dl (6.2-8.1)
[2024-01-12 15:03] LABS: COLLECTION METHOD CLEAN CATCH
[2024-01-12 15:14] LABS: PH 6.5 (5.0-8.5); URINE APPEARANCE CLEAR (CLEAR/HAZY); URINE BLOOD NEGATIVE (NEGATIVE); URINE COLOR YELLOW (YELLOW); URINE GLUCOSE NEGATIVE (NEGATIVE); URINE KETONE NEGATIVE (NEGATIVE); URINE NITRATE NEGATIVE (NEGATIVE); URINE PROTEIN(semi-quant) 1+ (NEGATIVE)
[2024-01-12] MEDS ORDERED: NS 50 ML IV SCH (16:01)
[2024-01-12] MEDS ORDERED: Iohexol 300 - 100 ML VIAL IV ONE (16:01)
[2024-01-12] MEDS ORDERED: Heparin/D5W 250 ML IV SCH (17:15)
[2024-01-12] MEDS ORDERED: Heparin 5,000 UNITS/ML 1 ML VIAL IV PRN (17:15)
[2024-01-12] MEDS ORDERED: Heparin 5,000 UNITS/ML 1 ML VIAL IV ONE (17:15)
[2024-01-12] MEDS ORDERED: metroNIDAZOLE 100 ML IV ONE (17:30)
[2024-01-12 17:33] LABS: INR 1.1 (0.8-3.0); PROTHROMBIN TIME 11.8 SECONDS (9.7-12.8)
[2024-01-12 17:36] LABS: PARTIAL THROMBOPLASTIN TIME 31.4 SECONDS (26.0-37.0)
[2024-01-12] MEDS ORDERED: cefTRIAXone 1 G in Water For Injection,Sterile 10 ML IV ONE (18:15)
[2024-01-12] MEDS ORDERED: HYDROmorphone 0.5 MG/0.5 ML SYRINGE IV PRN (19:00)
[2024-01-12] MEDS ORDERED: NS 1,000 ML IV SCH (19:00)
[2024-01-12] MEDS ORDERED: Ondansetron 4 MG/2 ML VIAL IV PRN (19:00)
[2024-01-12] MEDS ORDERED: NEURONTIN300 MG/CAP PO (19:06)
[2024-01-12] MEDS ORDERED: ISOPTIN SR180 M1 PO (19:07)
[2024-01-12] MEDS ORDERED: PRINIVIL40 MG PO (19:08)
[2024-01-12] MEDS ORDERED: MINOXIDIL 10 PO (19:13)
[2024-01-12] MEDS ORDERED: hydrALAZINE 20 MG/ML 1 ML VIAL IV PRN (19:15)
[2024-01-12] MEDS ORDERED: NEURONTIN100 MG/CAP PO ×2 (19:47)
[2024-01-12] MEDS ORDERED: VERAPAMIL180 MG/TAB PO (19:48)
[2024-01-12] MEDS ORDERED: TYLENOL 500MG500 MG PO (19:51)
[2024-01-12] MEDS ORDERED: Acetaminophen 325 MG TAB PO PRN (20:00)
[2024-01-12 20:20] VITALS: BP 159/64; PULSE 88; TEMP 97.6
--- NOTE | 2024-01-12 20:20 | NUR ---
PATIENT ARRIVE TO ROOM 314 FOR ADMIT TO UNIT, TELE IN PLACE, HEPARIN INFUSING RUNNING WITH NO PROBLEMS ON ADMIT. REPORTS SOME SHORTNESS OF BREATH, ON ROOM. SEE StaffInsight FOR VS.
[2024-01-12 20:42] VITALS: BP_SYST 159
[2024-01-12] MEDS ORDERED: Gabapentin 100 MG CAP PO SCH (21:00)
[2024-01-12 21:10] LABS: TSH w REFLEX 3.765 uIU/mL (0.350-4.940)
--- NOTE | 2024-01-12 23:59 | NUR ---
PER STAFF NURSE REPORTED PATIENT WITH DRY HEAVES, SEE MAR FOR ZOFRAN GIVEN. PATIENT CURRENTLY SITTING AT SIDE OF BED.
[2024-01-13] VITALS (23 sets, daily range): BP systolic 110–169; BP diastolic 48–79; PULSE 54–98; TEMP 97.5–98.5
--- NOTE | 2024-01-13 00:21 | NUR ---
PATIENT REPORTS PASSED LOOSE STOOL IN BED. TELE CONTINUES/IN PLACE. IV FLUIDS INFUSING WELL HEPARIN DRIP INFUSION. PATIENT CONTINUES ON OXYGEN AT NIGHT, PATIENT HAS HOME CPAP AND REPORTED TO R.T. STAFF THAT HE WILL NOT BE BRINGING IN HOME CPAP AND WILL JUST USE OXYGEN AT NIGHT WHILE HERE AT HOSPITAL.
[2024-01-13 07:36] LABS: BASO # 0.1 K/mm3 (0.0-0.2); BASO % 0.6 % (0.0-2.0); EOS # 0.3 K/mm3 (0.0-0.7); EOS % 3.2 % (0.0-4.0); GRAN # 6.9 K/mm3 (1.4-6.5); GRAN % 71.2 % (42.2-75.2); HEMOGLOBIN 10.9 g/dl (13.5-18.0); LYMPH # 1.4 K/mm3 (1.2-3.4); LYMPH % 14.8 % (20.0-51.0); MEAN CELL VOLUME 93 fl (80.0-100.0); MEAN CORPUSCULAR HEMOGLOBIN 29 pg (27-31); MEAN CORPUSCULAR HGB CONC 32 g/dl (33.0-37.0); MEAN PLATELET VOLUME 11.2 fl (7.4-10.4); MONO # 0.9 K/mm3 (0.1-0.6); MONO % 9.4 % (1.7-9.3); PLATELET COUNT 209 K/mm3 (130-400); RED BLOOD COUNT 3.72 M/mm3 (4.20-5.60); REDCELL DISTRIBUTION WIDTH-CV 15.5 % (11.5-14.5)
--- NOTE | 2024-01-13 07:36 | NUR ---
REPORT GIVEN TO DAY SHIFT NURSEDANIEL AND A SUPERVISOR DRAPERY HANGING.
[2024-01-13 07:50] LABS: HEMATOCRIT 34.6 % (42.0-52.0)
[2024-01-13 08:00] LABS: CALCIUM 9.2 mg/dL (8.4-10.2); CREATININE, serum 1.19 mg/dL (0.72-1.25)
[2024-01-13] MEDS ORDERED: Gabapentin 100 MG CAP PO SCH (08:00)
[2024-01-13] MEDS ORDERED: metroNIDAZOLE 100 ML IV SCH (08:00)
--- NOTE | 2024-01-13 08:21 | NUR ---
Hep gtt at goal, no changes.
[2024-01-13] MEDS ORDERED: 1/2 NS 1,000 ML IV SCH (08:30)
[2024-01-13] MEDS ORDERED: Pantoprazole 40 MG in NS 10 ML IV SCH (09:00)
--- NOTE | 2024-01-13 09:20 | NUR ---
PATEINT IN BED RESTING AND VOIDED IN URINAL THIS MORNING. HAS HAD ONE EPISODE OF LOOSE STOOL THIS SHIFT AT THIS TIME. COMPLAINS OF 5/10 BACK PAIN. CURRENTLY IV RUNNING HEPARIN 20,5 ML/HR THROUGH LEFT AC AND METRONIDAZOLE AT 100 ML/HR. CONTINUES TO REMAIN NPO. AT BESIDE.
[2024-01-13] MEDS ORDERED: NEURONTIN300 MG/CAP PO ×2 (09:57)
--- NOTE | 2024-01-13 10:32 | NUR ---
Patient is taken to MAGALIE cardioversion.
--- NOTE | 2024-01-13 10:40 | NUR ---
animal shelter worker met with patient and his , Abigail, P# [phone], to discuss discharge planning. Patient lives in [place] with his . PCP is Dr. Fleming, Pharmacy is [facility]. No issues affording medications. Insurance is Medicare A and B, [employer] Supplemental. DPOA-HC is Abigail then possibly Beata Da Silva (daughter). DME is CPAP. Patient also has a cane and walker but does not utilize them at this time. Patient reports to be independent with ADLS and is able to transport himself to and from appointments. Patient would like to return home at time of discharge. Patient stated he has had falls but not in the last few months. SW discussed home health. Patient and did not feel he needed those services at this time but may be interested at a later date. SW explained if patient wants them when he returns home he would need an appointment with his primary care physician and he could order it for him. Patient and understood. DIscharge plan: Home
[2024-01-13] MEDS ORDERED: Lidocaine PF 2% (20 MG/ML) 5 ML VIAL ONE (10:51)
[2024-01-13] MEDS ORDERED: Apixaban 5 MG TABLET PO ONE ×2 (11:45)
--- NOTE | 2024-01-13 11:52 | NUR ---
Patient is back from MAGALIE and cardioversion. Alert and oriented x 4, VSS. Dr. Simmons at bedside. She provides information about sotalol initiation. Family at bedside too. Post op started. Hep gtt still going on 2050 units per hr.
--- NOTE | 2024-01-13 11:53 | NUR ---
Aristides is transferred back to medical floor rm 314 after MAGALIE and cardioversion with Dr. Cade. Aristides tolerated procedure well and woke up with no problem. Pt now back in room, hooked up for post procedure vitals; tele shows he remains in sr with occasional PVCs. bs report and handoff of care to Haleigh VIERA.
--- NOTE | 2024-01-13 18:46 | NUR ---
Patient has been NS since he came back to room. Continues getting IV fluids per orders. Eating well. States some discomfort in his abdomen. He feels "bloated". Report will be given to night RN.
[2024-01-13] MEDS ORDERED: cefTRIAXone 2 G in Water For Injection,Sterile 20 ML IV SCH (19:00)
--- NOTE | 2024-01-13 19:28 | NUR ---
RECEIVED CHANGE OF SHIFT REPORT FROM DAY SHIFT NURSE. PATIENT RESTING IN BED, OXYGEN CONTINUES PER NC. IV FLUIDS INFUSING WITH NO PROBLEMS. PATIENT DENIES CHEST PAIN/SHORTNESS OF BREATH/NAUSEA AT TIME OF REPORT.
--- NOTE | 2024-01-13 22:09 | NUR ---
PATIENT REPORTED FEELING SHORT OF BREATH, OXYGEN SAT CHECKED AT 90 PERCENT, OXYGEN PER NC OBSERVED AT 1 LPM, INCREASED TO 2 LPM/NC WITH PATIENT STATING SHORTNESS OF BREATH IMPROVING AND OXYGEN SAT CHECKED AT 91 PERCENT WITH O2 AT 2 LPM
--- NOTE | 2024-01-13 23:55 | NUR ---
PATIENT REPORTS STILL FEELS SHORT OF BREATH, AND FEELS LIKE HIS ABD IS FULL AND HE IS GOING TO VOMIT. REPORTS STARTED TO FEEL MORE SHORT OF BREATH AFTER VOIDING AT BEDSIDE "I ABOUT FEEL LIKE I AM ALL WORN OUT". SEE MAR FOR MEDS GIVEN. HYDRAZALINE GIVEN FOR SBP > THAN 160
[2024-01-14] VITALS (12 sets, daily range): BP systolic 125–163; BP diastolic 56–75; PULSE 70–81; TEMP 97.6–98.3
--- NOTE | 2024-01-14 00:08 | NUR ---
INFORMED ONCALL PROVIDER OF PATIENT'S COMPLAINTS OF SHORTNESS OF BREATH AND OBSERVED SLIGHT AUDIBLE WHEEZING BREATHING. ORDER GIVEN TO ONE TIME DOSE OF DUONEB TREATMENT, RESPIRATORY THERAPY INFORMED OF ORDER. PATIENT INFORMED OF PROVIDER ORDER WITH NO FURTHER QUESTIONS OR CONCERNS.
[2024-01-14] MEDS ORDERED: Albuterol/Ipratropium 3 MG-0.5 MG/3 ML Neb Soln IH ONE (00:15)
--- NOTE | 2024-01-14 01:18 | NUR ---
COMPLAINS OF LEFT ABD PAIN, AGREED TO TAKE PAIN MED AT THIS TIME, SEE MAR.
--- NOTE | 2024-01-14 03:31 | NUR ---
PATIENT REPORTS HE THINKS THE DUONEB TREATMENT HELPED SOME AND CURRENTLY IS RESTING WITH LESS SHORTNESS OF BREATH COMPLAINTS AFTER OTHER MEDS GIVEN, SEE MAR.
[2024-01-14 06:06] LABS: BASO # 0.1 K/mm3 (0.0-0.2); BASO % 0.5 % (0.0-2.0); EOS # 0.4 K/mm3 (0.0-0.7); EOS % 3.6 % (0.0-4.0); GRAN # 7.4 K/mm3 (1.4-6.5); GRAN % 72.8 % (42.2-75.2); HEMOGLOBIN 10.9 g/dl (13.5-18.0); LYMPH # 1.2 K/mm3 (1.2-3.4); LYMPH % 11.5 % (20.0-51.0); MEAN CELL VOLUME 94 fl (80.0-100.0); MEAN CORPUSCULAR HEMOGLOBIN 30 pg (27-31); MEAN CORPUSCULAR HGB CONC 32 g/dl (33.0-37.0); MEAN PLATELET VOLUME 10.8 fl (7.4-10.4); MONO # 1.1 K/mm3 (0.1-0.6); MONO % 10.7 % (1.7-9.3); PLATELET COUNT 190 K/mm3 (130-400); RED BLOOD COUNT 3.67 M/mm3 (4.20-5.60); REDCELL DISTRIBUTION WIDTH-CV 15.7 % (11.5-14.5)
[2024-01-14 06:11] LABS: HEMATOCRIT 34.4 % (42.0-52.0)
[2024-01-14 06:25] LABS: ALBUMIN 3.4 g/dL (3.4-4.8); BILIRUBIN,TOTAL 0.3 mg/dL (0.2-1.2); CALCIUM 9.4 mg/dL (8.4-10.2); CREATININE, serum 1.08 mg/dL (0.72-1.25); POTASSIUM 4.5 mEq/L (3.5-4.5); TOTAL PROTEIN 6.5 g/dl (6.2-8.1)
--- NOTE | 2024-01-14 07:02 | NUR ---
CHANGE OF SHIFT REPORT GIVEN TO DAY SHIFT NURSENILESH.
--- NOTE | 2024-01-14 07:46 | NUR ---
Assessment completed. Pt a/o X4. SBA to chair. Reports chronic pain to his low back, rating pain 6/10. Fall precautions in place.
[2024-01-14] MEDS ORDERED: Apixaban 5 MG TABLET PO SCH (09:00)
--- NOTE | 2024-01-14 10:56 | NUR ---
IVF d/c'd per MD order.
[2024-01-14] MEDS ORDERED: Gabapentin 300 MG CAP PO SCH ×2 (11:15→21:00)
[2024-01-14] MEDS ORDERED: Furosemide 40 MG/4 ML VIAL IV ONE (15:30)
--- NOTE | 2024-01-14 19:03 | NUR ---
Pt denied chest pain throughout shift. O2 weaned to 2L/NC. SBA while ambulatiing in the hallway, on O2. No SOA noted at rest. IVF d/c'd per MD order. IV lasix administered per MD order. Fall precautions in place. Medicated with IV dilaudid this am for c/o chronic low back pain. Order received to restart gabapentin which was administered as ordered. BLE edema noted to be increased to +1 from this morning's assessment prior to administering lasix. visited most of the day.
[2024-01-15] VITALS (15 sets, daily range): BP systolic 154–189; BP diastolic 63–90; PULSE 62–77; TEMP 97.7–98.3
[2024-01-15 06:34] LABS: BASO # 0.1 K/mm3 (0.0-0.2); BASO % 0.6 % (0.0-2.0); EOS # 0.4 K/mm3 (0.0-0.7); EOS % 4.2 % (0.0-4.0); GRAN % 68.1 % (42.2-75.2); HEMOGLOBIN 10.3 g/dl (13.5-18.0); LYMPH # 1.2 K/mm3 (1.2-3.4); LYMPH % 13.8 % (20.0-51.0); MEAN CELL VOLUME 95 fl (80.0-100.0); MEAN CORPUSCULAR HEMOGLOBIN 30 pg (27-31); MEAN CORPUSCULAR HGB CONC 32 g/dl (33.0-37.0); MEAN PLATELET VOLUME 10.5 fl (7.4-10.4); MONO # 1.1 K/mm3 (0.1-0.6); MONO % 12.6 % (1.7-9.3); PLATELET COUNT 175 K/mm3 (130-400); RED BLOOD COUNT 3.44 M/mm3 (4.20-5.60); REDCELL DISTRIBUTION WIDTH-CV 15.7 % (11.5-14.5)
[2024-01-15 06:41] LABS: HEMATOCRIT 32.7 % (42.0-52.0)
[2024-01-15 06:55] LABS: ALBUMIN 3.3 g/dL (3.4-4.8); BILIRUBIN,TOTAL 0.2 mg/dL (0.2-1.2); CALCIUM 9.5 mg/dL (8.4-10.2); CREATININE, serum 1.16 mg/dL (0.72-1.25); POTASSIUM 4.6 mEq/L (3.5-4.5); TOTAL PROTEIN 6.2 g/dl (6.2-8.1)
[2024-01-15] MEDS ORDERED: amLODIPine 5 MG TAB PO SCH (09:37)
--- NOTE | 2024-01-15 09:40 | NUR ---
Assessment completed. Pt reports low back pain 08/18. Scheduled medications administered. Fall precautions in place. Kobe with physical therapy reported patient SpO2 dropped to 87% on RA while ambulating. Pt denies SOA at rest but SOA noted with exertion. Patient placed back on 2L/NC.
--- NOTE | 2024-01-15 13:19 | NUR ---
Pt to CT scan via w/c with radiology staff.
[2024-01-15] MEDS ORDERED: Iohexol 350 - 100 ML VIAL IV ONE (13:39)
[2024-01-15] MEDS ORDERED: NS 100 ML IV SCH (13:40)
--- NOTE | 2024-01-15 13:50 | NUR ---
Pt returns to room from CT.
--- NOTE | 2024-01-15 16:25 | NUR ---
Hydralazine administered for SBP >170. IV lasix adminsitered per new MD order for fluid overload that was indicated on CT chest. Patient continues to require O2 2L/NC. SOA noted at rest, while talking, at this time. Pt reports phlegm and nasal drip. Reports low back pain 5/10- on scheduled gabapentin- and patient declines offer for additional medication. Pt on strict I/O.
[2024-01-15] MEDS ORDERED: Furosemide 40 MG/4 ML VIAL IV SCH (16:30)
[2024-01-15] MEDS ORDERED: Loratadine 10 MG TAB PO SCH (17:25)
--- NOTE | 2024-01-15 18:11 | NUR ---
Patient has voided 1275ml since administration of Lasix. Notified Dr. Blandon of patient's complaint of phlegm and nasal drip. Order rec'd for Claritin and Flonase. Pt resting in bed at this time, watching tv.
--- NOTE | 2024-01-15 20:20 | NUR ---
Patient resting in bed. Rates pain at 6/10, states that is chronic for him. Scheduled gabapentin given. Needs met. Assessment complete. IV in left and right AC flush easily without complications. Call light and personal items in reach. Bed in low position and bed alarm on.
[2024-01-15] MEDS ORDERED: Fluticasone Nasal 50 MCG/Spray 16 GM BOTTLE NS SCH (21:00)
[2024-01-16] VITALS (12 sets, daily range): BP systolic 122–189; BP diastolic 66–75; PULSE 57–70; TEMP 97.5–98.1
[2024-01-16 07:56] LABS: BASO # 0.1 K/mm3 (0.0-0.2); BASO % 0.7 % (0.0-2.0); EOS # 0.7 K/mm3 (0.0-0.7); EOS % 6.7 % (0.0-4.0); GRAN # 6.5 K/mm3 (1.4-6.5); GRAN % 67.4 % (42.2-75.2); HEMOGLOBIN 12.1 g/dl (13.5-18.0); LYMPH # 1.3 K/mm3 (1.2-3.4); LYMPH % 13.2 % (20.0-51.0); MEAN CELL VOLUME 91 fl (80.0-100.0); MEAN CORPUSCULAR HEMOGLOBIN 30 pg (27-31); MEAN CORPUSCULAR HGB CONC 33 g/dl (33.0-37.0); MEAN PLATELET VOLUME 10.9 fl (7.4-10.4); MONO # 1.1 K/mm3 (0.1-0.6); MONO % 11.2 % (1.7-9.3); PLATELET COUNT 204 K/mm3 (130-400); RED BLOOD COUNT 4.07 M/mm3 (4.20-5.60); REDCELL DISTRIBUTION WIDTH-CV 15.4 % (11.5-14.5)
[2024-01-16 08:12] LABS: ALBUMIN 3.5 g/dL (3.4-4.8); BILIRUBIN,TOTAL 0.3 mg/dL (0.2-1.2); CREATININE, serum 1.04 mg/dL (0.72-1.25); POTASSIUM 4.6 mEq/L (3.5-4.5); TOTAL PROTEIN 6.9 g/dl (6.2-8.1)
[2024-01-16] MEDS ORDERED: amLODIPine 10 MG TAB PO SCH (09:00)
--- NOTE | 2024-01-16 09:25 | NUR ---
PATIENT ALERT AND ORIENTED X4. SITTING IN BED FINISHING BREAKFAST FRUIT. REPORTS GENERALIZED PAIN 6/10 REFUSED PAIN MEDICATION AT THIS TIME. PATIENT TELEMETRY INPLACE, ON 2L . PATIENT FAMILY AT BEDSIDE. SHIFT ASSESSMENT COMPLETED. CALL LIGHT WITHIN REACH. BED AT LOWEST POSITION. BED ALARM ON.
--- NOTE | 2024-01-16 12:59 | NUR ---
Sticker Machine Operator met with patient and his to present and review IM form. Patient verbalized understanding and provided signature. SW placed form in chart and provided copy to patient. Patient had exercise oximetry and still required oxygen with ambulation. Hospitalist advised he will not discharge today. Discharge Plan: Home
--- NOTE | 2024-01-16 18:55 | NUR ---
PATIENT RESTING IN BED WITH TV ON WITH NO FAMILY PRESENT WITH NO ACUTE DISTRESS NOTED. PATIENT ON ROOM AIR. IV'S TO RIGHT AND LEFT AC INTACT WITH NO COMPLICATIONS NOTED. TELEMETRY INTACT. BEDSIDE SHIFT REPORT COMPLETED WITH JOVAN. PATIENT STATES " MY HOME CPAP IS IN THE CLOSET." ENVELOPE SEALER NURSE ASSUSRE PATIENT THAT SHE WOULD SET UP CPAP FOR PATIENT. PATIENT DENIES ANY OTHER NEEDS. BED IN LOW POSITION WITH WHEELS LOCKED WITH RAILS UP X2 AND CALL LIGHT WITHIN REACH.
--- NOTE | 2024-01-16 20:32 | NUR ---
PATIET RESTING WITH EYES CLOSED WITH HOME CPAP ON WITH TV ON WITH NO FAMILY PRESENT WITH NO ACUTE DISTRESS NOTED. PATIENT ON ROOM AIR. INTs TO RIGHT AND LEFT AC INTACT WITH NO COMPLICATIONS NOTED. TELEMETRY ON. ASSESSMENT AND MEDICATION ADMINISTRATION COMPLETED AT THIS TIME. PATIENT TOLERATED WELL. ALL NEEDS MET. BED IN LOW POSITION WITH WHEELS LOCKED WITH RAILS UP X2 AND CALL LIGHT WITHIN REACH.
[2024-01-17] VITALS (8 sets, daily range): BP systolic 129–167; BP diastolic 66–73; PULSE 58–67; TEMP 97.4–98.6
--- NOTE | 2024-01-17 00:14 | NUR ---
RT NOTIFIED BY RN THAT PT'S SATS HAVE DROPPED INTO THE 80'S. 3L 02 BLEED IN PUT INLINE WITH PT'S HOME CPAP. PT NOW SATTING 92%. PT ALSO NOTED TO BE DISPLAYING GAPING MOUTH DURING THIS OCCURENCE. IT MAY BE BENEFICIAL FOR PT TO HAVE A CHIN STRAP WITH HIS CPAP TO GET THE CORRECT CPAP PRESSURE.
[2024-01-17 06:29] LABS: BASO # 0.1 K/mm3 (0.0-0.2); BASO % 0.7 % (0.0-2.0); EOS # 0.8 K/mm3 (0.0-0.7); EOS % 8.7 % (0.0-4.0); GRAN # 6.1 K/mm3 (1.4-6.5); HEMATOCRIT 37.9 % (42.0-52.0); HEMOGLOBIN 12.7 g/dl (13.5-18.0); LYMPH # 1.5 K/mm3 (1.2-3.4); LYMPH % 15.6 % (20.0-51.0); MEAN CELL VOLUME 89 fl (80.0-100.0); MEAN CORPUSCULAR HEMOGLOBIN 30 pg (27-31); MEAN CORPUSCULAR HGB CONC 34 g/dl (33.0-37.0); MEAN PLATELET VOLUME 10.5 fl (7.4-10.4); MONO # 0.9 K/mm3 (0.1-0.6); MONO % 9.9 % (1.7-9.3); PLATELET COUNT 223 K/mm3 (130-400); RED BLOOD COUNT 4.24 M/mm3 (4.20-5.60); REDCELL DISTRIBUTION WIDTH-CV 15.4 % (11.5-14.5)
[2024-01-17 06:45] LABS: CREATININE, serum 1.18 mg/dL (0.72-1.25); POTASSIUM 4.8 mEq/L (3.5-4.5)
[2024-01-17] MEDS ORDERED: Sodium Zirconium Cyclosilicate for Oral Susp 10 GM PACKET PO ONE (08:00)
[2024-01-17] MEDS ORDERED: FLAGYL500 MG PO (09:08)
[2024-01-17] MEDS ORDERED: CIPRO 500MG TA500 MG PO (09:08)
[2024-01-17] MEDS ORDERED: ELIQUIS 5MG PO (09:09)
[2024-01-17] MEDS ORDERED: BETAPACE 80MG80 MG PO (09:10)
[2024-01-17] MEDS ORDERED: NORVASC 10MG10 MG PO (09:10)
[2024-01-17] MEDS ORDERED: PROTONIX 40MG T40 MG PO (09:13)
[2024-01-17] MEDS ORDERED: cefTRIAXone 2 G in Water For Injection,Sterile 20 ML IV ONE (09:15)
--- NOTE | 2024-01-17 09:50 | NUR ---
PATIENT ALERT AND ORIENTED X4. DENIES PAIN AT THIS TIME. ON ROOM AIR, TELEMETRY INPLACE. PATIENT SHIFT ASSESSMENT COMPLETED. PATIENT FURTHER NEEDS AT THIS TIME. CALL LIGHT WITHIN REACH. BED AT LOWEST POSITION. BED ALARM ON.
--- NOTE | 2024-01-17 09:51 | NUR ---
PATIENT DOES NOT QUALIFY FOR HOME O2. PATIENT REMAINED >90% DURING TESTING ON ROOM AIR.
--- NOTE | 2024-01-17 10:49 | NUR ---
[employer] attended clinical rounds and patient is going to be discharged home with no oxygen needs.
--- NOTE | 2024-01-17 11:41 | NUR ---
PATIENT DISCHARGE INSTRUCTIONS GIVEN. PATIENT VERBALIZED UNDERSTANDING. PATIENT IV FROM LEFT AC REMOVED BY STUDENT NURSE UNDER THIS NURSE SUPERVISION. PATIENT INSTRUCTED TO CALL WHEN RIDE ARRIVES.CALL LIGHT WITHIN REACH. BED AT LOWEST POSITION. BED ALARM ON.
--- NOTE | 2024-01-17 13:35 | NUR ---
PATIENT IV DISCONTINUED FROM RIGHT AC, TELEMETRY DISCONTINUED. PATIENT DRESSED AND READY TO GO AT THIS TIME. PATIENT ESCORTED OUT OF UNIT BY PCT.
== END 2024-01-17 13:45 | disposition home or self-care (01) | DRG 391 ==
LOC: COL.ER 13:09 → MEDICAL 18:11 → COL.ER 18:11 → MEDICAL 18:12
PROVIDERS: Nurse Practitioner; Nurse Practitioner Family; ADMIT Hospitalist
PROC: 5A2204Z Restoration of Cardiac Rhythm, Single (ICD-10-PCS; principal; 2024-01-13)
DX: K57.92 Diverticulitis of intestine, part unspecified, without perforation or abscess without bleeding (principal); J81.0 Acute pulmonary edema; J96.01 Acute respiratory failure with hypoxia; E87.22 Chronic metabolic acidosis; N17.9 Acute kidney failure, unspecified; I48.0 Paroxysmal atrial fibrillation; Z96.652 Presence of left artificial knee joint; N18.2 Chronic kidney disease, stage 2 (mild); D64.9 Anemia, unspecified; I13.10 Hypertensive heart and chronic kidney disease without heart failure, with stage 1 through stage 4 chronic kidney disease, or unspecified chronic kidney disease; N28.89 Other specified disorders of kidney and ureter; K44.9 Diaphragmatic hernia without obstruction or gangrene; E87.5 Hyperkalemia; Z90.49 Acquired absence of other specified parts of digestive tract; Z79.899 Other long term (current) drug therapy; Z87.891 Personal history of nicotine dependence; Z88.0 Allergy status to penicillin; Z88.2 Allergy status to sulfonamides; Z88.9 Allergy status to unspecified drugs, medicaments and biological substances; Z87.19 Personal history of other diseases of the digestive system; Z85.21 Personal history of malignant neoplasm of larynx
CPT/HCPCS: A9270; A9284; G0378; J0360; J0696; J1171; J1644; J1836; J1940; J2405; J2470; J2704; J7030; Q9967